=== PATIENT | female | born 1995 | race American Indian/Alaskan Native ===

== ENCOUNTER 2018-05-30 08:47 | Emergency (ER) | payer OTHER ==
[2018-05-30 08:50] VITALS: BMI 29.2
[2018-05-30 08:55] VITALS: BP 120/78; PULSE 96; RESP 18; TEMP 98.6; O2SAT 98
--- NOTE | 2018-05-30 09:25 | ED PDOC ---
Arrival/HPI - General Chief Complaint: ENT Problem Time Seen by Provider: 05/30/18 09:07 Historian: Patient - History of Present Illness Narrative History of Present Illness (Text): 05/30/18 09:11 A 22 year old female, whose past medical history includes eczema, presents to the emergency department complaining of a sore throat for the past 2 days. Patient reports her sister and niece have been experiencing similar symptoms. Grover babb states she went to sleep night with a sore throat and woke up with lip swelling. Patient notes she has eczema on her lips and administered Aquaphore ointment to some relief. Patient denies any fever, chills, pain upon swallowing, shortness of breath, chest pain, headache, dizziness, or any other complaints. PMD: Dr. Fowler Time/Duration: Other (2 days) Symptom Onset: Gradual Symptom Course: Unchanged Activities at Onset: Light Context: Home Past Medical History - Provider Review Nursing Documentation Reviewed: Yes - Infectious Disease Hx of Infectious Diseases: None - Integumentary Hx Eczema: Yes - Psychiatric Hx Substance Use: No Family/Social History - Physician Review Nursing Documentation Reviewed: Yes Family/Social History: No Known Family HX Smoking Status: Never Smoked Hx Alcohol Use: No Hx Substance Use: No Allergies/Home Meds Allergies/Adverse Reactions: Allergies No Known Allergies Allergy (Verified 04/14/16 14:45) Review of Systems - Physician Review All systems were reviewed & negative as marked: Yes - Review of Systems Constitutional: absent: Fevers, Other (chills) ENT: Sore Throat (sore and itchy throat). absent: Other (no pain upon swallowing) Respiratory: absent: SOB Cardiovascular: absent: Chest Pain Neurological: absent: Headache, Dizziness Physical Exam - Physical Exam Narrative Physical Exam (Text): 05/30/18 09:12 Gen: VS reviewed, alert, well developed, well nourished, nontoxic, mild distress. ENT: normal pharynx. Eye: EOMI, PERRL. Neck: no JVD, supple, no adenopathy. CV: regular rate, regular rhythm, no rubs, no murmur, no gallops, S1, S2, pulses equal and strong. Pulm: no distress, clear to auscultation, no wheeze, no rhonchi, breath sounds equal, no rales. Abd: soft, nontender, no guarding, no rebound, no rigidity, normal bowel sounds. Ext: no edema. Skin: swollen upper lip with a central vesicles consistent with herpetic lesion. good color, no rash, no cyanosis. Psych: responds appropriately to questions, normal affect. Neuro: oriented x 3, CN2-12 intact grossly, motor intact, sensation intact. Vital Signs Reviewed: Yes Vital Signs Temp Pulse Resp BP Pulse Ox 05/30/18 08:48 98.6 F 96 H 18 120/78 98 Temperature: Afebrile Blood Pressure: Hypertensive Pulse: Tachycardic Respiratory Rate: Normal Appearance: Positive for: Well-Appearing, Non-Toxic Mental Status: Positive for: Alert and Oriented X 3 Medical Decision Making ED Course and Treatment: 05/30/18 09:12 Impression: 22 year old female presenting to the emergency department complaining of a sore and itchy throat. Plan: -- urine pergnancy test -- Rapid strep test -- Reassess and disposition Prior Visits: Notes and results from previous visits were reviewed. Progress Notes: 05/30/18 09:55 uncomplicated herpes labialis, first episode, tx acyclovir. pending rapid strep with low centor score. 05/30/18 09:55 - Scribe Statement The provider has reviewed the documentation as recorded by the Alan Rios All medical record entries made by the Isidraibrebeca were at my direction and personally dictated by me. I have reviewed the chart and agree that the record accurately reflects my personal performance of the history, physical exam, medical decision making, and the department course for this patient. I have also personally directed, reviewed, and agree with the discharge instructions and disposition. Disposition/Present on Arrival - Present on Arrival Any Indicators Present on Arrival: No History of DVT/PE: No History of Uncontrolled Diabetes: No Urinary Catheter: No History of Decub. Ulcer: No History Surgical Site Infection Following: None - Disposition Have Diagnosis and Disposition been Completed?: Yes Diagnosis: Herpes labialis Disposition: HOME/ ROUTINE Disposition Time: 09:56 Patient Plan: Discharge Patient Problems: Current Active Problems Problem Status Onset Herpes labialis Acute Condition: STABLE Discharge Instructions (ExitCare): Cold Sores (Oral Herpes) Additional Instructions: return for any new or worsening symptoms especially if the rash or swelling extends to other areas of the face. lip swelling is expected. DO NOT ATTEMPT TO SQUEEZE THE LESION, YOU MAY CAUSE MORE PAIN AND SWELLING OR EVEN SCARRING. Prescriptions: Acyclovir [Zovirax] 400 mg PO TID 7 Days #21 tablet Forms: [employer] ([place])
== END 2018-05-30 10:19 | disposition home or self-care (01) ==
LOC: ED 08:47
DX: B00.1 Herpesviral vesicular dermatitis (principal)